=== PATIENT | male | born 1975 | race Caucasian/White ===

== ENCOUNTER 2018-11-15 11:33 | Emergency (ER) | payer SELFPAY ==
[~2018-11-15] VITALS: Ht 185.4 cm; Wt 61.2 kg
[2018-11-15] MEDS ORDERED: DEXAMETHASONE 10 MG/ML (DECADRON) 1 ML VIAL IM ONE (11:45)
--- NOTE | 2018-11-15 11:48 | ED Integumentary General ---
General Stated Complaint: BUG BITE;R EYE SWELLING Source: patient Exam Limitations: no limitations History of Present Illness Date Seen by Provider: Nov 15, 2018 Time Seen by Provider: 11:45 Initial Comments To ER with reports of an insect bite suspected to the right lateral cheek. He awakened with this this morning and had some puffiness around the right eye. He also has a couple of what he suspects are bug bites to the left side of the neck , left shoulder on the right finger. He's been helping a friend move. Timing/Duration: this morning Severity: mild Location: face Associated Symptoms: edema Allergies and Home Medications Allergies Coded Allergies: Penicillins (Verified Allergy, Unknown, 11/15/18) Patient Home Medication List Home Medication List Reviewed: Yes Review of Systems Review of Systems Constitutional: see HPI EENTM: see HPI Respiratory: no symptoms reported Cardiovascular: no symptoms reported Genitourinary: no symptoms reported Musculoskeletal: no symptoms reported Skin: see HPI Physical Exam Vital Signs Capillary Refill : General Appearance: WD/WN, no apparent distress HEENT: PERRL/EOMI, normal ENT inspection, other (no hyperemia of the conjunctiva or sclera, no discharge from the eye. Extraocular muscles are intact. There is some edema without discoloration to the right lower eyelid. There is one small area of mild erythema without fluctuance or pustule to the most lateral aspect of this area of edema which could be an insect bite) Neck: non-tender, full range of motion Respiratory: no respiratory distress, no accessory muscle use Gastrointestinal: normal bowel sounds, non tender, soft Extremities: normal range of motion, non-tender Neurologic/Psychiatric: alert, normal mood/affect, oriented x 3 Skin: normal color, warm/dry Skin Problem Location: face Progress/Results/Core Measures Results/Orders My Orders Orders - ELIZABETH BROCK APRN Dexamethasone Injection (Decadron Inject (11/15/18 11:45) Departure Impression Primary Impression: Insect bite Qualified Codes: S00.96XA - Insect bite (nonvenomous) of unspecified part of head, initial encounter; W57.XXXA - Bitten or stung by nonvenomous insect and other nonvenomous arthropods, initial encounter Additional Impression: localized allergic response Disposition: 01 HOME, SELF-CARE Condition: Stable Departure-Patient Inst. Decision time for Depature: 11:47 Patient Instructions: Wound Care Add. Discharge Instructions: 1. Cool compresses to this area would be helpful if you can do that. Ice pack to the area for 20-30 minutes every 2 hours would be helpful. Take antibiotics as directed. Tonight when you get home from work take a Benadryl if she still have some swelling, this will help as well. Do not take it today as it may cause drowsiness which could impair you're driving. Take antibiotics as directed in case there is infection Scripts Cephalexin (Keflex) 500 Mg Capsule 500 MG PO TID, #21 CAP Prov: ELIZABETH BROCK APRN 11/15/18 ELIZABETH BROCK APRN Nov 15, 2018 11:48
[2018-11-15] MEDS ORDERED: CEPH-507 PO (11:52)
[2018-11-15 12:15] VITALS: BP 135/92
== END 2018-11-15 12:10 | disposition home or self-care (01) ==
LOC: ER 11:35
DX: S00.86XA Insect bite (nonvenomous) of other part of head, initial encounter (principal); Z88.0 Allergy status to penicillin; W57.XXXA Bitten or stung by nonvenomous insect and other nonvenomous arthropods, initial encounter
CPT/HCPCS: 99284

== ENCOUNTER 2021-02-23 16:04 | Emergency (ER) | payer OTHER ==
[~2021-02-23] VITALS: Ht 185.5 cm; Wt 81.6 kg
[~2021-02-23 16:04] MED LIST: CEPH-507 PO
--- NOTE | 2021-02-23 16:30 | ED Head Injury ---
General Chief Complaint: Laceration Stated Complaint: HEAD LAC Source: patient Exam Limitations: no limitations History of Present Illness Date Seen by Provider: February 23, 2021 Time Seen by Provider: 16:20 Initial Comments This is a well-appearing 45-year-old male presents to the ER with complaints of head laceration that he sustained about 1130 this afternoon while working. States that a bucket fell on top of his head. He applied direct pressure and bleeding was controlled prior to arrival. Sought ED evaluation per request of his friends. Currently denying pain. Did not lose consciousness, no neck pain. Allergies and Home Medications Allergies Coded Allergies: Penicillins (Verified Allergy, Unknown, 11/15/18) Home Medications Cephalexin 500 Mg Capsule, 500 MG PO TID Prescribed by: ELIZABETH BROCK on 11/15/18 1152 Patient Home Medication List Home Medication List Reviewed: Yes Review of Systems Review of Systems Constitutional: see HPI Eyes: No Symptoms Reported Ears, Nose, Mouth, Throat: no symptoms reported Respiratory: no symptoms reported Cardiovascular: no symptoms reported Gastrointestinal: no symptoms reported Musculoskeletal: no symptoms reported Psychiatric/Neurological: See HPI Past Aetxjod-Gawjcw-Dvlhwp Hx Past Medical History Surgeries: Yes (HERNIA) Respiratory: No Cardiac: No Neurological: No Physical Exam Vital Signs Vital Signs - First Documented 02/23/21 16:18 Temp 37.1 Pulse 74 Resp 16 B/P (MAP) 134/98 (110) Pulse Ox 99 O2 Delivery Room Air Capillary Refill : Height, Weight, BMI Height: 6'1.00" Weight: 135lbs. oz. 61.118317wi; BMI Method:Stated General Appearance: WD/WN, no apparent distress HEENT: PERRL/EOMI, normal ENT inspection, other Neck: full range of motion, normal inspection Cardiovascular: regular rate, rhythm, no murmur Respiratory: lungs clear, normal breath sounds Gastrointestinal: non tender, soft Extremities: normal range of motion, normal inspection Psychiatric: alert, oriented x 3, depressed affect Skin: normal color, warm/dry [place] Coma Score Best Eye Response: (4) Open Spontaneously Best Verbal Response: (5) Oriented Best Motor Response: (6) Obeys Commands [place] Total: 15 Procedures/Interventions Wound Location: Other Other Wound Location scalp Wound Length (cm): 2.5 Wound's Depth, Shape: superficial, linear Wound Explored: foreign body removed Irrigated w/ Saline (ccs): 100 Staple Repair: Stapler 35W Number of Sutures: 4 Area cleansed with Chlorhexadine scrub and saline. Syringe irrigated with 100ml NS. Approximated wound with 4 weston. Tolerated well. Progress/Results/Core Measures Results/Orders My Orders Orders - DARIA HAYS APRN Dipht,Pertuss(Acell),Tet Adult (Boostrix (02/23/21 17:00) Medications Given in ED Current Medications Medications Dose Ordered Sig/Leo Route Start Time Stop Time Status Last Admin Dose Admin Diphtheria/ Tetanus/Acell Pertussis 0.5 ml ONCE ONCE IM 02/23/21 17:00 02/23/21 17:01 DC 02/23/21 17:04 0.5 ML Vital Signs/I&O 02/23/21 02/23/21 16:18 17:05 Temp 37.1 Pulse 74 65 Resp 16 16 B/P (MAP) 134/98 (110) 131/92 Pulse Ox 99 97 O2 Delivery Room Air Room Air Departure Impression Primary Impression: Laceration of head Disposition: HOME, SELF-CARE Condition: Improved Departure-Patient Inst. Decision time for Depature: 16:43 Referrals: NO,LOCAL PHYSICIAN (PCP/Family) Primary Care Physician Patient Instructions: Wound Care ED, Laceration Repair Add. Discharge Instructions: Plan: 1. Keep area clean and dry. May shower, do not scrub site. Pat dry. 2. Monitor for signs of infection: fever, redness, swelling, purulent drainage. 3. Return to ER on March 02 for possible suture removal. 4. Return for any new or worsening symptoms. All discharge instructions reviewed with patient and/or family. Voiced understanding. DARIA HAYS APRN February 23, 2021 16:30
[2021-02-23] MEDS ORDERED: TETANUS,DIPTH,PERTUSS P/F (BOOSTRIX) 0.5 ML VIAL IM ONE (17:00)
[2021-02-23 17:05] VITALS: BP 131/92
== END 2021-02-23 17:05 | disposition home or self-care (01) ==
LOC: EDUNIT# 16:04 → ER 16:06
DX: S01.91XA Laceration without foreign body of unspecified part of head, initial encounter (principal); R40.2410 Glasgow coma scale score 13-15, unspecified time; Z88.0 Allergy status to penicillin; Z23 Encounter for immunization; W22.8XXA Striking against or struck by other objects, initial encounter
CPT/HCPCS: 90715; 99284

== ENCOUNTER 2021-03-02 12:31 | Emergency (ER) | payer OTHER ==
[~2021-03-02] VITALS: Ht 185 cm; Wt 86.1 kg
[2021-03-02 12:46] VITALS: BP 143/92
== END 2021-03-02 12:51 | disposition home or self-care (01) ==
LOC: EDUNIT# 12:31 → ER 12:33
DX: Z48.02 Encounter for removal of sutures (principal)

== ENCOUNTER 2021-06-29 17:11 | Emergency (ER) | payer BC ==
[~2021-06-29] VITALS: Ht 185.5 cm; Wt 81.6 kg
[2021-06-29 17:24] VITALS: BP 136/85
--- NOTE | 2021-06-29 17:34 | ED Upper Extremity ---
General Stated Complaint: L HAND INDEX FINGER INJ Source: patient Exam Limitations: no limitations History of Present Illness Date Seen by Provider: Jun 29, 2021 Time Seen by Provider: 17:29 Initial Comments This is a 45-year-old male presented the ER with complaints of pain, bruising to his left index finger. States that he smashed his finger in car garage on Tuesday. Had hematoma under nail, he performed trephination with needle at home. States pain is still present and he would like x-ray. Allergies and Home Medications Allergies Coded Allergies: Penicillins (Verified Allergy, Unknown, 11/15/18) Patient Home Medication List Cephalexin (Keflex) 500 Mg Capsule, 500 MG PO TID Prescribed by: ELIZABETH BROCK on 11/15/18 1152 Past Flpxdor-Tdhirr-Qwaumu Hx Past Medical History Surgeries: Yes (HERNIA) Respiratory: No Cardiac: No Neurological: No Physical Exam Vital Signs Vital Signs - First Documented 06/29/21 17:24 Temp 37.2 Pulse 62 Resp 18 B/P (MAP) 136/85 (102) Pulse Ox 98 O2 Delivery Room Air Capillary Refill : Height, Weight, BMI Height: 6'1.00" Weight: 135lbs. oz. 61.385131ai; 23.00 BMI Method:Stated Respiratory: no respiratory distress, no accessory muscle use Neurologic/Tendon: normal motor functions, normal tendon functions, responds to pain Neurologic/Psychiatric: no motor/sensory deficits, alert, normal mood/affect, oriented x 3 Skin: normal color, warm/dry LEFT INDEX FINGER: Bruising to nail plate. Limited ROM. Tender to touch. Progress/Results/Core Measures Results/Orders My Orders Orders - DARIA HAYS EMPLOYMENT ATTORNEY Finger(S) (06/29/21 17:29) Vital Signs/I&O 06/29/21 17:24 Temp 37.2 Pulse 62 Resp 18 B/P (MAP) 136/85 (102) Pulse Ox 98 O2 Delivery Room Air Departure Impression Primary Impression: Subungual hematoma of index finger Disposition: HOME, SELF-CARE Condition: Improved Departure-Patient Inst. Decision time for Depature: 18:23 Referrals: NO,LOCAL PHYSICIAN (PCP/Family) Primary Care Physician Patient Instructions: Bruising Under the Nail Add. Discharge Instructions: Plan: 1. Take antibiotics as directed and complete full course even if symptoms improve. 2. May take Tylenol or Ibuprofen as needed for pain. 3. Follow up with your doctor if your symptoms persist. 4. Return for any new, concerning, or worsening symptoms. Scripts Sulfamethoxazole/Trimethoprim (Bactrim Ds Tablet) 1 Each Tablet 1 EACH PO BID for 7 Days, #14 TAB 0 Refills Prov: DARIA HAYS APRN 06/29/21 DARIA HAYS APRN Jun 29, 2021 17:34
--- NOTE | 2021-06-29 18:20 | Diagnostic Imaging Report ---
CLINICAL HISTORY: Caught finger in the garage door. COMPARISON: None. TECHNIQUE: 3 views of the left hand. FINDINGS: There is no acute fracture or dislocation of the left hand. Alignment is anatomic. The imaged joint spaces are preserved. IMPRESSION: 1. No acute fracture or dislocation in the left hand. Dictated by: Dictated on workstation # [id number]
[2021-06-29] MEDS ORDERED: SULF1TAB38 PO (18:25)
== END 2021-06-29 18:29 | disposition home or self-care (01) ==
LOC: EDUNIT# 17:11 → ER 17:13
DX: S60.122A Contusion of left index finger with damage to nail, initial encounter (principal); W23.1XXA Caught, crushed, jammed, or pinched between stationary objects, initial encounter
CPT/HCPCS: 29130; 73140

== ENCOUNTER 2023-08-02 08:13 | Emergency (ER) | payer OTHER ==
[~2023-08-02] VITALS: Ht 185 cm; Wt 81.6 kg
[~2023-08-02 08:13] MED LIST changes: +SULF1TAB38 PO
[2023-08-02] MEDS ORDERED: TETRACAINE 0.5% OPHTH SOLN 4 ML BTL (SINGLE DOSE ONLY) OU ONE (08:30)
[2023-08-02] MEDS ORDERED: BSS 15 ML IR ONE ×2 (08:30→09:15)
[2023-08-02] MEDS ORDERED: FLUORESCEIN 1 MG OPHTHALMIC STRIPS OU ONE (08:30)
--- NOTE | 2023-08-02 08:35 | ED EENT ---
History of Present Illness General Chief Complaint: Eye Problems Stated Complaint: WC | CEMENT SPLASHED INTO EYES Nursing Triage Note: PT STATES HE WAS SPLASHED IN THE FACE WITH WET CONCRETE, EYES WERE FLUSHED ON SCENE, PT WENT TO URGENT CARE AND WAS FLUSHED WITH NS, DR. JHA INFORMED ON PT ARRIVAL TO 2 AT 0820. 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 MILD PAIN BUT BLURRED VISION IN BOTH EYES, FEELS LIKE SAND IN LT EYE Source: patient Exam Limitations: no limitations History of Present Illness Date Seen by Provider: Aug 02, 2023 Time Seen by Provider: 08:26 Initial Comments This 47-year-old gentleman presents to the emergency room as referred by Urgent Care. He was pumping concrete when some wet concrete was accidentally blown up into his face including both eyes. He now has bilateral blurry vision and mild eye pain as well as abrasions on the left cheek and periorbital region. He initially presented to Urgent Care where saline was used to irrigate the eyes. He was then referred to the emergency room. Patient states that the pain is really more of an irritation which he rates as 4/10. His left eye is more uncomfortable. Visual acuity is 20/25 in the left eye and 20/70 in the right eye. Patient does not have a primary care doctor nor an eye doctor. Allergies and Home Medications Allergies Coded Allergies: Penicillins (Verified Allergy, Unknown, 11/15/18) Patient Home Medication List Home Medication List Reviewed: Yes Cephalexin (Keflex) 500 Mg Capsule, 500 MG PO TID Prescribed by: ELIZABETH BROCK on 11/15/18 1152 Sulfamethoxazole/Trimethoprim (Bactrim Ds Tablet) 1 Each Tablet, 1 EACH PO BID Prescribed by: DARIA HAYS on 06/29/21 3675 Review of Systems Review of Systems Constitutional: no symptoms reported Eyes: See HPI Ears: No Symptoms Reported Nose: no symptoms reported Mouth: no symptoms reported Throat: no symptoms reported Respiratory: no symptoms reported Cardiovascular: no symptoms reported Gastrointestinal: no symptoms reported Musculoskeletal: no symptoms reported Skin: see HPI Neurological: No Symptoms Reported Hematologic/Lymphatic: No Symptoms Reported Past Eggcsfk-Zjnitm-Hxvwzw Hx Patient Social History Tobacco Use?: Yes Tobacco type used: Cigarettes Smokeless Tobacco Frequency: Current Everyday User Use of E-Cig and/or Vaping dev: No Substance use?: No Alcohol Use?: Yes Alcohol Frequency: Once in a while Past Medical History Surgeries: Yes (HERNIA) Abdominal Respiratory: Yes COPD Cardiac: No Neurological: No Genitourinary: No Gastrointestinal: No Musculoskeletal: No Endocrine: No HEENT: No Cancer: No Psychosocial: No Visual Acuity : Eye Location: Bilaterally Vision Acuity Degree: 20/30 (20/25 in left eye, 20/70 in right eye) Physical Exam Vital Signs Vital Signs - First Documented 08/02/23 08:21 Temp 36.5 Pulse 65 Resp 18 B/P (MAP) 163/106 (125) Pulse Ox 99 O2 Delivery Room Air Height, Weight, BMI Height: 6'1.00" Weight: 135lbs. oz. 61.387596ry; 23.00 BMI Method:Stated General Appearance: WD/WN, no apparent distress Eyes: bilateral eye normal inspection, bilateral eye PERRL, bilateral eye EOMI Ears: bilateral ear auricle normal Nose: normal inspection Neck: normal inspection Cardiovascular: regular rate, rhythm, no edema, no murmur Respiratory: lungs clear, normal breath sounds, no respiratory distress Neurologic/Psychiatric: flat finisher II-XII nml as tested, no motor/sensory deficits, alert, normal mood/affect, oriented x 3 Skin: normal color, warm/dry, other (Minor abrasions to the left cheek) Progress/Results/Core Measures Results/Orders My Orders Orders - YARA JHA MD Tetracaine 0.5% Ophth Angela Sdv (Tetracai (08/02/23 08:30) Fluorescein Ophthalmic Strips (Fluoresce (08/02/23 08:30) Balanced Salt Irrigation Soln (Bss Irrig (08/02/23 08:30) Balanced Salt Irrigation Soln (Bss Irrig (08/02/23 09:15) Balanced Salt Irrigation Soln (Bss Irrig (08/02/23 09:07) Titi/Poly/Dex Ophthalmic Susp (Neomycin/P (08/02/23 09:45) Titi/Poly/Dex Ophthalmic Susp (Neomycin/P (08/02/23 09:52) Medications Given in ED Current Medications Medications Dose Ordered Sig/Leo Route Start Time Stop Time Status Last Admin Dose Admin Balanced Salt Solution 15 ml ONCE ONCE IR 08/02/23 08:30 08/02/23 08:31 DC 08/02/23 08:37 15 ML Balanced Salt Solution 15 ml ONCE ONCE IR 08/02/23 09:15 08/02/23 09:16 DC 08/02/23 09:39 15 ML Fluorescein Sodium 1 mg ONCE ONCE OU 08/02/23 08:30 08/02/23 08:31 DC 08/02/23 08:38 1 MG Tetracaine HCl 4 ml ONCE ONCE OU 08/02/23 08:30 08/02/23 08:31 DC 08/02/23 08:37 4 ML Vital Signs/I&O 08/02/23 08/02/23 08:21 10:31 Temp 36.5 36.5 Pulse 65 57 Resp 18 18 B/P (MAP) 163/106 (125) 144/100 Pulse Ox 99 99 O2 Delivery Room Air Room Air Blood Pressure Mean: 125 Progress Progress Note : Progress Note No foreign bodies or injuries to the eye were noted on visual inspection. Patient's eyes were irrigated with 15 mL balanced saline mixed with 0.1 mL of tetracaine. Patient performed a further irrigation on his own by placing a dditional drops of balance saline in both eyes. Fluorescein exam was performed and revealed a very faint uptake over the pupils, right greater than left. No uptake was noted over the irises, presumably because the very faint dye uptake blended in with the eye color. pH was tested in both eyes and was 7 bilaterally. I discussed the case with Dr. Kiersten Spears, allocation analyst. She recommended Maxitrol 1 drop per eye 4 times daily and follow-up in the clinic tomorrow at 3 PM. See discharge instructions for further discussion. Work note and Workmen's Comp. paperwork were completed. Departure Impression Primary Impression: Chemical exposure of eye Additional Impression: Corneal injury Qualified Codes: S05.8X9A - Other injuries of unspecified eye and orbit, initial encounter Disposition: 01 HOME, SELF-CARE Condition: Stable Departure-Patient Inst. Decision time for Depature: 10:18 Referrals: JENNIFER CHAVES OD,LOCAL PHYSICIAN (PCP) Primary Care Physician Patient Instructions: Chemical Eye Injury Add. Discharge Instructions: Use the Maxitrol eyedrops until instructed otherwise. Place 1 drop in each eye every 6 hours. Follow-up with Dr. Kiersten spears at [facility] tomorrow, August 03, at 3:00 PM. Please call the office at the number below to provide any information they me need and confirm the appointment time. If you are having any worsening of symptoms in the meantime, please call their office or the ER to receive further instructions. Do not drive or operate any machinery until your vision clears. Call with any other questions or concerns. All discharge instructions reviewed with patient and/or family. Voiced understanding. Work/School Note: Work Release Form Date Seen in the Emergency Department: Aug 02, 2023 Return to Work: Aug 04, 2023 Other Restrictions Listed Below: Return when vision clears to baseline. Wear protective eyewear. Copy Copies To 1: JENNIFER CHAVES OD, JOSHUA T MD Aug 02, 2023 08:34
[2023-08-02] MEDS ORDERED: BSS 15 ML ONE (09:07)
[2023-08-02] MEDS ORDERED: NEOMYCIN OP STA ×2 (09:45→09:52)
[2023-08-02] MEDS ORDERED: DEXAMETHASONE OP STA ×2 (09:45→09:52)
[2023-08-02] MEDS ORDERED: [UNRECOGNIZED DRUG - OTHER] OP STA ×2 (09:45→09:52)
[2023-08-02 10:31] VITALS: BP 144/100
== END 2023-08-02 10:30 | disposition home or self-care (01) ==
LOC: EDUNIT# 08:13 → ER 08:16
DX: S05.8X2A Other injuries of left eye and orbit, initial encounter (principal); F17.210 Nicotine dependence, cigarettes, uncomplicated; Z77.098 Contact with and (suspected) exposure to other hazardous, chiefly nonmedicinal, chemicals; X58.XXXA Exposure to other specified factors, initial encounter
CPT/HCPCS: 99282